=== PATIENT | male | born 1995 | race Caucasian/White ===

== ENCOUNTER 2019-05-31 01:32 | Emergency (ER) | payer BC, MEDICAID ==
[~2019-05-31] VITALS: Ht 172.7 cm; Wt 95.3 kg
[2019-05-31 01:32] VITALS: BP_SYST 145
[2019-05-31] MEDS ORDERED: IBUPROFEN 600 MG TABLET PO ONE (06:00)
[2019-05-31] MEDS ORDERED: IBUPROFEN 600 MG TABLET ONE (06:14)
[2019-05-31 06:30] VITALS: BP_SYST 145
== END 2019-05-31 06:30 | disposition home or self-care (01) ==
LOC: SED 01:32
DX: S01.412A Laceration without foreign body of left cheek and temporomandibular area, initial encounter (principal); E11.9 Type 2 diabetes mellitus without complications; F10.10 Alcohol abuse, uncomplicated; F12.90 Cannabis use, unspecified, uncomplicated; V89.2XXA Person injured in unspecified motor-vehicle accident, traffic, initial encounter; Y93.89 Activity, other specified; Y92.413 State road as the place of occurrence of the external cause; Y99.8 Other external cause status; Y90.9 Presence of alcohol in blood, level not specified
CPT/HCPCS: 99283